=== PATIENT | male | born 1940 | race Caucasian/White ===

== ENCOUNTER 2018-03-09 13:36 | Emergency (ER) | payer MEDICARE, SELFPAY ==
[~2018-03-09] VITALS: Ht 177.8 cm; Wt 63.5 kg
[~2018-03-09 13:36] MED LIST: CLOP75 PO; FINA5 PO; FOLGARD TABLET1 EACH PO; Hair, Skin & N1 EACH PO; LIVALO2 MG PO; MAGOXI400 PO; POTASSIUM GLUCO90 MG PO; POTASSIUM99 MG PO
[2018-03-09 15:06] LABS: BASOPHILS ABSOLUTE AUTO 0.03 K/mm3 (0.00-0.23); BASOPHILS PERCENT AUTO 0 % (0-2); EOSINOPHILS PERCENT AUTO 2 % (0-6); Hematocrit 38.8 % (37.0-53.0); IMMATURE GRAN ABSOLUTE AUTO 0.03 K/mm3 (0.00-0.10); IMMATURE GRAN PERCENT AUTO 0 % (0-1); LYMPHOCYTES ABSOLUTE AUTO 1.98 K/mm3 (0.84-5.20); LYMPHOCYTES PERCENT AUTO 20 % (21-46); MONOCYTES ABSOLUTE AUTO 1.32 K/mm3 (0.16-1.47); MONOCYTES PERCENT AUTO 13 % (4-13); Mean Corpuscular HGB 30.1 pg (26.0-34.0); Mean Corpuscular HGB Conc 33.5 g/dL (31.5-36.5); Mean Corpuscular Volume 90 fL (80-100); NEUTROPHILS ABSOLUTE AUTO 6.54 K/mm3 (1.96-9.15); NEUTROPHILS PERCENT AUTO 65 % (41-73); Platelet Count 192 K/mm3 (150-400); RDW Coefficient Variation 13.8 % (11.7-14.2); RDW Standard Deviation 45.6 fL (35.1-46.3); Red Blood Cell Count 4.32 M/mm3 (4.30-5.90)
[2018-03-09] MEDS ORDERED: CLOP75 PO (15:23)
[2018-03-09 15:24] LABS: Alanine Aminotransfer (ALT/SGP 16 U/L (12-78); Albumin, Blood 3.6 g/dL (3.4-5.0); Albumin/Globulin Ratio 0.9 (0.8-1.8); Alk Phos 83 U/L (50-136); Anion Gap 6 mmol/L (6-16); Aspartate Aminotrans (AST/SGOT 21 U/L (12-37); Bilirubin, Total 0.6 mg/dL (0.1-1.0); Blood Urea Nitrogen 20 mg/dL (8-24); Bun/Creatinine Ratio 13.9 (12.0-20.0); CO2, Blood 26 mmol/L (21-32); Chloride, Blood 105 mmol/L (98-108); Creatinine, Blood 1.44 mg/dL (0.60-1.20); Glomerular Filtration Rate 50 (60-); Glucose, Blood 93 mg/dL (70-99); Sodium, Blood 137 mmol/L (136-145); Total Protein, Blood 7.6 g/dL (6.4-8.2); Troponin I <0.015 ng/mL (0.000-0.040)
== END 2018-03-09 16:50 | disposition home or self-care (01) ==
LOC: ER 13:36
PROVIDERS: Emergency Medicine
DX: I97.638 Postprocedural hematoma of a circulatory system organ or structure following other circulatory system procedure (principal); G89.18 Other acute postprocedural pain; R07.89 Other chest pain; I25.2 Old myocardial infarction; Z79.01 Long term (current) use of anticoagulants; Z87.891 Personal history of nicotine dependence
CPT/HCPCS: 71046; 80053; 83880; 84443; 84484; 85025; 93005; 93010; 99283

== ENCOUNTER 2018-03-23 00:06 | Emergency (ER) | payer MEDICARE, SELFPAY ==
[~2018-03-23] VITALS: Ht 177.8 cm; Wt 63.0 kg
[2018-03-23] MEDS ORDERED: ASPI81CH PO (00:14)
[2018-03-23 02:40] LABS: BASOPHILS ABSOLUTE AUTO 0.03 K/mm3 (0.00-0.23); BASOPHILS PERCENT AUTO 0 % (0-2); EOSINOPHILS ABSOLUTE AUTO 0.25 K/mm3 (0.00-0.68); EOSINOPHILS PERCENT AUTO 3 % (0-6); Hematocrit 34.2 % (37.0-53.0); Hemoglobin 11.3 g/dL (13.5-17.5); IMMATURE GRAN ABSOLUTE AUTO 0.04 K/mm3 (0.00-0.10); IMMATURE GRAN PERCENT AUTO 1 % (0-1); LYMPHOCYTES ABSOLUTE AUTO 1.93 K/mm3 (0.84-5.20); LYMPHOCYTES PERCENT AUTO 23 % (21-46); MONOCYTES ABSOLUTE AUTO 0.66 K/mm3 (0.16-1.47); MONOCYTES PERCENT AUTO 8 % (4-13); Mean Corpuscular HGB 29.7 pg (26.0-34.0); Mean Corpuscular Volume 90 fL (80-100); Mean Platelet Volume 8.5 fL (9.1-12.4); NEUTROPHILS ABSOLUTE AUTO 5.49 K/mm3 (1.96-9.15); NEUTROPHILS PERCENT AUTO 65 % (41-73); Platelet Count 260 K/mm3 (150-400); RDW Standard Deviation 45.9 fL (35.1-46.3)
[2018-03-23 03:00] LABS: Albumin, Blood 3.2 g/dL (3.4-5.0); Albumin/Globulin Ratio 0.9 (0.8-1.8); Bilirubin, Total 0.3 mg/dL (0.1-1.0); Bun/Creatinine Ratio 19.7 (12.0-20.0); Calcium, Blood 8.5 mg/dL (8.5-10.1); Creatinine, Blood 1.37 mg/dL (0.60-1.20); Globulin, Blood 3.7 g/dL (2.2-4.0); Potassium, Blood 4.1 mmol/L (3.5-5.5); Total Protein, Blood 6.9 g/dL (6.4-8.2); Troponin I 0.025 ng/mL (0.000-0.040)
== END 2018-03-23 03:41 | disposition home or self-care (01) ==
LOC: ER 00:06
PROVIDERS: Emergency Medicine
DX: R07.9 Chest pain, unspecified (principal); I25.2 Old myocardial infarction; F17.210 Nicotine dependence, cigarettes, uncomplicated; Z88.5 Allergy status to narcotic agent; Z79.82 Long term (current) use of aspirin; Z79.01 Long term (current) use of anticoagulants; Z79.899 Other long term (current) drug therapy
CPT/HCPCS: 36415; 71046; 80053; 84484; 85025; 93005; 93010; 99283

== ENCOUNTER 2018-10-19 09:41 | Inpatient (IN) | payer MEDICARE ==
[~2018-10-19] VITALS: Ht 177.8 cm; Wt 62.4 kg
[~2018-10-19 09:41] MED LIST changes: +ASPI81CH PO
[2018-10-19] MEDS ORDERED: NATTOKINASE PO (10:01)
[2018-10-19 10:08] LABS: BASOPHILS ABSOLUTE AUTO 0.02 K/mm3 (0.00-0.23); BASOPHILS PERCENT AUTO 0 % (0-2); EOSINOPHILS ABSOLUTE AUTO 0.03 K/mm3 (0.00-0.68); EOSINOPHILS PERCENT AUTO 0 % (0-6); Hematocrit 40.2 % (37.0-53.0); Hemoglobin 13.4 g/dL (13.5-17.5); IMMATURE GRAN ABSOLUTE AUTO 0.03 K/mm3 (0.00-0.10); IMMATURE GRAN PERCENT AUTO 0 % (0-1); LYMPHOCYTES ABSOLUTE AUTO 1.45 K/mm3 (0.84-5.20); LYMPHOCYTES PERCENT AUTO 16 % (21-46); MONOCYTES ABSOLUTE AUTO 0.48 K/mm3 (0.16-1.47); MONOCYTES PERCENT AUTO 5 % (4-13); Mean Corpuscular HGB 29.5 pg (26.0-34.0); Mean Corpuscular HGB Conc 33.3 g/dL (31.5-36.5); Mean Corpuscular Volume 89 fL (80-100); Mean Platelet Volume 9.3 fL (9.1-12.4); NEUTROPHILS ABSOLUTE AUTO 7.29 K/mm3 (1.96-9.15); NEUTROPHILS PERCENT AUTO 78 % (41-73); Platelet Count 197 K/mm3 (150-400); RDW Coefficient Variation 13.9 % (11.7-14.2); RDW Standard Deviation 45.1 fL (35.1-46.3); Red Blood Cell Count 4.54 M/mm3 (4.30-5.90)
[2018-10-19 10:20] LABS: Alanine Aminotransfer (ALT/SGP 14 U/L (12-78); Albumin, Blood 3.7 g/dL (3.4-5.0); Alk Phos 100 U/L (50-136); Anion Gap 9 mmol/L (6-16); Aspartate Aminotrans (AST/SGOT 17 U/L (12-37); Bilirubin, Total 0.5 mg/dL (0.1-1.0); Blood Urea Nitrogen 19 mg/dL (8-24); Bun/Creatinine Ratio 13.4 (12.0-20.0); CO2, Blood 23 mmol/L (21-32); Calcium, Blood 8.8 mg/dL (8.5-10.1); Chloride, Blood 105 mmol/L (98-108); Creatinine, Blood 1.42 mg/dL (0.60-1.20); Globulin, Blood 3.6 g/dL (2.2-4.0); Glomerular Filtration Rate 51 (60-); Glucose, Blood 117 mg/dL (70-99); Potassium, Blood 4.2 mmol/L (3.5-5.5); Sodium, Blood 137 mmol/L (136-145); Total Protein, Blood 7.3 g/dL (6.4-8.2); Troponin I <0.015 ng/mL (0.000-0.040)
[2018-10-20 05:33] LABS: BASOPHILS ABSOLUTE AUTO 0.01 K/mm3 (0.00-0.23); BASOPHILS PERCENT AUTO 0 % (0-2); EOSINOPHILS ABSOLUTE AUTO 0.11 K/mm3 (0.00-0.68); EOSINOPHILS PERCENT AUTO 2 % (0-6); Hematocrit 36.7 % (37.0-53.0); Hemoglobin 12.5 g/dL (13.5-17.5); IMMATURE GRAN ABSOLUTE AUTO 0.03 K/mm3 (0.00-0.10); IMMATURE GRAN PERCENT AUTO 0 % (0-1); LYMPHOCYTES ABSOLUTE AUTO 2.17 K/mm3 (0.84-5.20); LYMPHOCYTES PERCENT AUTO 30 % (21-46); MONOCYTES ABSOLUTE AUTO 0.57 K/mm3 (0.16-1.47); MONOCYTES PERCENT AUTO 8 % (4-13); Mean Corpuscular HGB 29.7 pg (26.0-34.0); Mean Corpuscular HGB Conc 34.1 g/dL (31.5-36.5); Mean Corpuscular Volume 87 fL (80-100); Mean Platelet Volume 9.5 fL (9.1-12.4); NEUTROPHILS ABSOLUTE AUTO 4.44 K/mm3 (1.96-9.15); NEUTROPHILS PERCENT AUTO 61 % (41-73); Platelet Count 126 K/mm3 (150-400); RDW Coefficient Variation 13.9 % (11.7-14.2); RDW Standard Deviation 44.5 fL (35.1-46.3); Red Blood Cell Count 4.21 M/mm3 (4.30-5.90); White Blood Cell Count 7.33 K/mm3 (4.00-11.30)
[2018-10-20 05:42] LABS: International Normalized Ratio 1.03; Prothrombin Time Results 10.6 Sec (9.7-11.5)
[2018-10-20 05:48] LABS: Anion Gap 9 mmol/L (6-16); Blood Urea Nitrogen 20 mg/dL (8-24); Bun/Creatinine Ratio 14.4 (12.0-20.0); CHOL/HDL RATIO 5.7; CO2, Blood 23 mmol/L (21-32); Calcium, Blood 8.4 mg/dL (8.5-10.1); Chloride, Blood 107 mmol/L (98-108); Cholesterol 233 mg/dL (50-200); Creatinine, Blood 1.39 mg/dL (0.60-1.20); Glomerular Filtration Rate 52 (60-); Glucose, Blood 92 mg/dL (70-99); HDL Cholesterol 41 mg/dL (>39); LDL/HDL RATIO 4.1; Low Density Lipoprotein Chol 169 mg/dL (0-110); Potassium, Blood 4.2 mmol/L (3.5-5.5); Sodium, Blood 139 mmol/L (136-145); Triglycerides 117 mg/dL (30-160); Very Low Density Lipoprot Chol 23 mg/dL (6-32)
[2018-10-21 06:23] LABS: Albumin, Blood 3.3 g/dL (3.4-5.0); Anion Gap 7 mmol/L (6-16); Blood Urea Nitrogen 18 mg/dL (8-24); Bun/Creatinine Ratio 12.9 (12.0-20.0); CO2, Blood 27 mmol/L (21-32); Calcium, Blood 8.8 mg/dL (8.5-10.1); Chloride, Blood 105 mmol/L (98-108); Creatinine, Blood 1.39 mg/dL (0.60-1.20); Glomerular Filtration Rate 52 (60-); Glucose, Blood 89 mg/dL (70-99); Phosphorus, Blood 2.9 mg/dL (2.5-4.9); Potassium, Blood 4.4 mmol/L (3.5-5.5); Sodium, Blood 139 mmol/L (136-145)
[2018-10-22 05:21] LABS: Albumin, Blood 3.1 g/dL (3.4-5.0); Anion Gap 6 mmol/L (6-16); Blood Urea Nitrogen 18 mg/dL (8-24); Bun/Creatinine Ratio 12.9 (12.0-20.0); CO2, Blood 27 mmol/L (21-32); Calcium, Blood 8.5 mg/dL (8.5-10.1); Chloride, Blood 106 mmol/L (98-108); Glomerular Filtration Rate 52 (60-); Glucose, Blood 97 mg/dL (70-99); Potassium, Blood 3.7 mmol/L (3.5-5.5); Sodium, Blood 139 mmol/L (136-145)
[2018-10-23 05:42] LABS: Albumin, Blood 3.1 g/dL (3.4-5.0); Anion Gap 9 mmol/L (6-16); Blood Urea Nitrogen 17 mg/dL (8-24); CO2, Blood 24 mmol/L (21-32); Calcium, Blood 8.5 mg/dL (8.5-10.1); Chloride, Blood 109 mmol/L (98-108); Creatinine, Blood 1.21 mg/dL (0.60-1.20); Glomerular Filtration Rate >60 (60-); Glucose, Blood 95 mg/dL (70-99); Phosphorus, Blood 2.9 mg/dL (2.5-4.9); Sodium, Blood 142 mmol/L (136-145)
[2018-10-23] MEDS ORDERED: POTCHL10ER PO (15:37)
[2018-10-23] MEDS ORDERED: ACET500 PO (15:39)
[2018-10-23] MEDS ORDERED: ASPI81CH PO (15:40)
[2018-10-23] MEDS ORDERED: ATOR40TA PO (15:41)
[2018-10-23] MEDS ORDERED: Prinivil10 MG PO (15:44)
[2018-10-23] MEDS ORDERED: LORA.5 PO (15:45)
[2018-10-23] MEDS ORDERED: SPIR25 PO (15:46)
[2018-10-23] MEDS ORDERED: HYDR1TAB94 PO (15:47)
[2018-10-23] MEDS ORDERED: METO25 PO (15:49)
== END 2018-10-23 16:50 | disposition home or self-care (01) | DRG 66 ==
LOC: ER 09:41 → MEDS 14:40 → ENPENDDIS 10-23 14:59 → MEDS 10-23 16:50
PROVIDERS: Emergency Medicine; Internal Medicine Endocrinology, Diabetes & Metabolism; Student in an Organized Health Care Education/Training Program
DX: I63.9 Cerebral infarction, unspecified (principal); I25.2 Old myocardial infarction; R25.2 Cramp and spasm; Z95.5 Presence of coronary angioplasty implant and graft; I25.10 Atherosclerotic heart disease of native coronary artery without angina pectoris; I65.22 Occlusion and stenosis of left carotid artery; N18.3 Chronic kidney disease, stage 3 (moderate); F17.200 Nicotine dependence, unspecified, uncomplicated; E78.5 Hyperlipidemia, unspecified; R73.03 Prediabetes; M54.5 Low back pain; R29.810 Facial weakness; I77.9 Disorder of arteries and arterioles, unspecified; E78.1 Pure hyperglyceridemia; I12.9 Hypertensive chronic kidney disease with stage 1 through stage 4 chronic kidney disease, or unspecified chronic kidney disease
CPT/HCPCS: 36415; 70450; 70496; 70498; 71275; 74174; 80048; 80053; 80061; 80069; 82607; 82746; 83735; 84484; 85025; 85610; 85730; 92526; 92610; 93005; 93010; 93880; 93922; 96361; 96374; 96375; 97110; 97112; 97162; 97166; 97530; 99285-25; G8978; G8979; G8987; G8988; G8996; G8997; J0360; J1650; J2060; J2405; J3010; J7030; Q9967

== ENCOUNTER 2019-04-16 07:01 | Day surgery (SDC) | payer MEDICARE, OTHER ==
[~2019-04-16] VITALS: Ht 177.8 cm; Wt 61.4 kg
[~2019-04-16 07:01] MED LIST changes: +ACET500 PO; +ATOR40TA PO; +HYDR1TAB94 PO; +LORA.5 PO; +METO25 PO; +NATTOKINASE PO; +POTCHL10ER PO; +Prinivil10 MG PO; +SPIR25 PO
[2019-04-16] MEDS ORDERED: CHLORZOXAZONE375 MG PO (07:41)
[2019-04-16] MEDS ORDERED: COLCHICINE0.6 MG PO (07:42)
[2019-04-16] MEDS ORDERED: CLOP75 PO (07:43)
[2019-04-16] MEDS ORDERED: NAPR500 PO (07:43)
[2019-04-16] MEDS ORDERED: Coq-10100 MG PO (07:43)
[2019-04-16] MEDS ORDERED: Multivitamin1 EAC1 PO (07:43)
--- NOTE | 2019-04-16 14:04 | NUR ---
5 MINS MANUAL PRESSURE HELD AFTER CHANGING DRESSING FROM CLEAR TEGADERM TO ALLYSSA PAD. RFA SITE CONTINUED TO HAVE TRACK OOZING. PT DENIES PAIN. TOLERATING PO FOOD/FLUIDS WITH NO ISSUES. VSS. WILL CONTINUE TO MONITOR.
--- NOTE | 2019-04-16 15:43 | NUR ---
PT RFA SITE CONTINUES TO HAVE TRACK OOZING, ALLYSSA PAD SOILED WITH BLOOD. SUBCUTANEOUS LIDOCAINE WITH EPINEPHERINE USED TO TRY AND REDUCE OOZING. MANUAL PRESSURE BEING HELD AT THIS TIME. NEW ALLYSSA PAD AND CLEAR TEGADERM WILL BE APPLIED. WILL CONTINUE TO MONITOR.
--- NOTE | 2019-04-16 16:19 | NUR ---
PT RFA SITE REMAINS STABLE, ALLYSSA PAD AND TEGADERM INTACT. NO SIGNS OF TRACK OOZING AT THIS TIME. WILL CONTINUE TO MONITOR.
--- NOTE | 2019-04-16 16:57 | NUR ---
HOB RAISED TO 45 DEGREES, RIGHT GROIN SITE REMAINS STABLE. WILL CONTINUE TO MONITOR. VSS.
--- NOTE | 2019-04-16 18:04 | NUR ---
PT VERBALIZED UNDERSTANDING OF D/C INSTRUCTIONS. RIGHT FEMORAL SITE APPEARS STABLE. PT PREVIOULSY AMBULATED WITH SLOW STEADY GAIT TO RESTROOM, UNMEASURED VOID. PT DENIES PAIN. RFA SITE SOFT NON TENDER, NO ACTIVE BLEEDING OR OOZING NOTED. TEGADERM AND ALLYSSA PAD IN PLACE. VSS. PT HERE TO DRIVE HIM HOME. IV REMOVED FROM [facility] WITH CATH INTACT. PRESSURE DRESSING APPLIED. NADN AT TIME OF DISPO. INFORMED THAT DR PINON'S MA WITH CALL HIM ON SATURDAY TO SCHEDULE FOLLOW UP APPOINTMENT.
== END 2019-04-16 17:00 | disposition home or self-care (01) ==
LOC: MHTC 07:01
DX: T82.858A Stenosis of other vascular prosthetic devices, implants and grafts, initial encounter (principal); I70.203 Unspecified atherosclerosis of native arteries of extremities, bilateral legs; I72.4 Aneurysm of artery of lower extremity; E78.5 Hyperlipidemia, unspecified; I10 Essential (primary) hypertension; I25.2 Old myocardial infarction; Z86.73 Personal history of transient ischemic attack (TIA), and cerebral infarction without residual deficits; Z88.5 Allergy status to narcotic agent
CPT/HCPCS: 37221; 37229; 37236; 75625; 75716; 75774; 99152; 99153; C1724; C1725; C1760; C1769; C1874; C1876; C1887; C1894; C2623; J1644; J2250; J3010; J7030; Q9967

== ENCOUNTER 2020-03-09 09:20 | Day surgery (SDC) | payer MEDICARE, OTHER ==
[~2020-03-09] VITALS: Ht 177.8 cm; Wt 63.2 kg
[~2020-03-09 09:20] MED LIST changes: +CHLORZOXAZONE375 MG PO; +COLCHICINE0.6 MG PO; +Coq-10100 MG PO; +Multivitamin1 EAC1 PO; +NAPR500 PO
--- NOTE | 2020-03-09 15:28 | NUR ---
DISCHARGE PT DRESSED WITH HELP. PT R FEMORAL SITE DRESSING IS C/D/I. NO SIGNS OF BLEEDING, OOZING OR HEMATOMA NOTED. VSS. PT AND STATE THEIR UNDERSTANDING OF BOTH DISCHARGE AND SITE CARE INSTRUCTIONS AND BOTH DENY ANY QUESTIONS OR CONCERNS. IV DCD IWTH CATH IN TACT. PT TAKEN VIA WHEELCHAIR TO EXIT WHERE WAS WAITING WITH VEHICLE.
== END 2020-03-09 15:30 | disposition home or self-care (01) ==
LOC: MHTC 09:20
DX: I70.212 Atherosclerosis of native arteries of extremities with intermittent claudication, left leg (principal); I10 Essential (primary) hypertension; E78.5 Hyperlipidemia, unspecified; I25.2 Old myocardial infarction; Z86.73 Personal history of transient ischemic attack (TIA), and cerebral infarction without residual deficits; Z87.891 Personal history of nicotine dependence; Z79.899 Other long term (current) drug therapy; Z88.5 Allergy status to narcotic agent
CPT/HCPCS: 37220; 37222; 37226; 37228; 37232; 75716; 75774; 85347; 99152; 99153; C1725; C1760; C1769; C1876; C1887; C1894; C2623; J1644; J2250; J3010; J7030; Q9967